=== PATIENT | female | born 1990 | race Caucasian/White ===

== ENCOUNTER 2020-10-12 14:36 | Inpatient (IN) | payer MEDICAID, OTHER ==
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
[2020-10-12] MEDS ORDERED: MAG HYDROX/AL HYDROX/SIMETH 30 ML CUP PO PRN (22:52)
[2020-10-12] MEDS ORDERED: LORazepam 1 MG TAB PO PRN (22:52)
[2020-10-12] MEDS ORDERED: MAGNESIUM HYDROXIDE 2,400 MG/10 ML CUP PO PRN (22:52)
[2020-10-12] MEDS ORDERED: ACETAMINOPHEN TAB 325 MG TAB PO PRN (22:52)
[2020-10-12] MEDS ORDERED: LORazepam 2 MG/ML INJ IM PRN (22:56)
[2020-10-12] MEDS ORDERED: HALOPERIDOL LACTATE 5 MG/ML 1 ML VIAL IM PRN (22:56)
[2020-10-12] MEDS ORDERED: haloperidoL 5 MG TAB PO PRN (22:56)
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
[2020-10-13 05:38] LABS: Urine Alcohol Positive (Negative); Urine Barbiturate Negative (Negative); Urine Cocaine Negative (Negative); Urine Methadone Negative (Negative); Urine Opiates Negative (Negative); Urine Phencyclidine Negative (Negative)
[2020-10-13 07:24] VITALS: TEMP 98.4
[2020-10-13 07:30] LABS: Basophils % (A) 0 %; Eosinophils # (A) 0.1 k/uL (0-0.7); Eosinophils % (A) 1 %; HCT 39.5 % (34.0-46.0); HGB 13.8 gm/dL (11.4-16.0); Lymphocytes # (A) 1.6 k/uL (1.0-4.8); Lymphocytes % (A) 31 %; MCH 30.4 pg (25.0-35.0); MCV 86.8 fL (80.0-100.0); Monocytes # (A) 0.3 k/uL (0-1.0); Monocytes % (A) 6 %; Neutrophils # (A) 3.1 k/uL (1.3-7.7); Neutrophils % (A) 60 %; Platelet Count 186 k/uL (150-450); RBC 4.54 m/uL (3.80-5.40); RDW 12.1 % (11.5-15.5); WBC 5.2 k/uL (3.8-10.6)
[2020-10-13 07:47] LABS: ALT 25 U/L (4-34); AST 31 U/L (14-36); African American GFR (CKD) >90 (>60 ml/min/1.73 sqM); Albumin 4.4 g/dL (3.5-5.0); Alkaline Phosphatase 62 U/L (38-126); Anion Gap 7 mmol/L; Blood Urea Nitrogen 11 mg/dL (7-17); Calcium 9.3 mg/dL (8.4-10.2); Carbon Dioxide 27 mmol/L (22-30); Chloride 105 mmol/L (98-107); Glucose 82 mg/dL (74-99); Non-African American GFR(CKD) >90 (>60 ml/min/1.73 sqM); Sodium 139 mmol/L (137-145); Total Bilirubin 1.4 mg/dL (0.2-1.3); Total Protein 6.9 g/dL (6.3-8.2)
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
[2020-10-13 16:20] LABS: Hemoglobin A1C 4.5 % (4.0-6.0)
[2020-10-13 16:40] LABS: Chol/HDL Ratio 2.65; Cholesterol 191 mg/dL (0-200); LDL Cholesterol,Calculated 106.4 mg/dL (0.0-131.0)
[2020-10-13 21:12] VITALS: RESP 18
[2020-10-13] MEDS: cloNIDine HCL 0.1 MG TAB PO SCH (21:12)
[2020-10-14] MEDS: cloNIDine HCL 0.1 MG TAB PO SCH (08:46)
[2020-10-14 08:47] VITALS: BP 118/71; PULSE 91
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
== END 2020-10-14 13:55 | disposition home or self-care (01) | DRG 897 ==
LOC: EC 14:36 → 3MHU 21:51
PROVIDERS: ADMIT Psychiatry & Neurology Psychiatry; ATTEND Psychiatry & Neurology Psychiatry
DX: F10.229 Alcohol dependence with intoxication, unspecified (principal); F33.9 Major depressive disorder, recurrent, unspecified; R45.851 Suicidal ideations; F43.10 Post-traumatic stress disorder, unspecified; F60.89 Other specific personality disorders; F60.3 Borderline personality disorder; Z91.5 Personal history of self-harm
CPT/HCPCS: 80053; 80061; 80306; 81025; 82075; 83036; 84443; 85025; 99285

== ENCOUNTER 2022-04-04 17:06 | Inpatient (IN) | payer MEDICAID, OTHER ==
[2022-04-04] MEDS ORDERED: ACETAMINOPHEN TAB 325 MG TAB PO PRN (23:34)
[2022-04-04] MEDS ORDERED: LORazepam 1 MG TAB PO PRN (23:34)
[2022-04-04] MEDS ORDERED: MAG HYDROX/AL HYDROX/SIMETH 30 ML CUP PO PRN (23:34)
[2022-04-04] MEDS ORDERED: HALOPERIDOL LACTATE 5 MG/ML 1 ML VIAL IM PRN (23:34)
[2022-04-04] MEDS ORDERED: MAGNESIUM HYDROXIDE 2,400 MG/10 ML CUP PO PRN (23:34)
[2022-04-04] MEDS ORDERED: LORazepam 2 MG/ML INJ IM PRN (23:40)
[2022-04-04] MEDS ORDERED: haloperidoL 5 MG TAB PO PRN (23:41)
--- NOTE | 2022-04-05 02:49 | ED ---
Psych HPI - General Chief Complaint: Psychiatric Symptoms Stated Complaint: mental health Time Seen by Provider: 04/04/22 20:17 Source: patient Mode of arrival: ambulatory - History of Present Illness Initial Comments: 31-year-old female presents emergency department reporting suicidal ideations. Patient has a history of depression and PTSD. States that she has been more depressed over the past couple of days and now has suicidal thoughts. No attempts. No plan. Has one reported attempts in 2009. States that she has been hospitalized multiple times for her depression, the last of which was in [place]. She denies hallucinations. No homicidal ideations. Admits to mar ijuana use. Denies alcohol or other drug use. No concern for . 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 ROS Other: All systems not noted in ROS Statement are negative. Past Medical History Past Medical History: Unable to Obtain History of Any Multi-Drug Resistant Organisms: None Reported Past Surgical History: Unable to Obtain Past Psychological History: Anxiety, Depression, PTSD Smoking Status: Never smoker, Unknown if ever smoked Past Alcohol Use History: Unable to Obtain Past Drug Use History: Marijuana - Past Family History Mother Additional Family Medical History / Comment(s): Didn't wish to discuss her family history General Exam Limitations: no limitations General appearance: alert, in no apparent distress Head exam: Present: atraumatic, normocephalic, normal inspection Eye exam: Present: normal appearance, PERRL, EOMI. Absent: scleral icterus, conjunctival injection, periorbital swelling ENT exam: Present: normal exam, mucous membranes moist Neck exam: Present: normal inspection. Absent: tenderness, meningismus, lymphadenopathy Respiratory exam: Present: normal lung sounds bilaterally. Absent: respiratory distress, wheezes, rales, rhonchi, stridor Cardiovascular Exam: Present: regular rate, normal rhythm, normal heart sounds. Absent: systolic murmur, diastolic murmur, rubs, gallop, clicks GI/Abdominal exam: Present: soft, normal bowel sounds. Absent: distended, tenderness, guarding, rebound, rigid Extremities exam: Present: normal inspection, full ROM, normal capillary refill. Absent: tenderness, pedal edema, joint swelling, calf tenderness Back exam: Present: normal inspection Neurological exam: Present: alert, oriented X3, CN II-XII intact Psychiatric exam: Present: depressed, suicidal ideation Skin exam: Present: warm, dry, intact, normal color. Absent: rash Course Vital Signs 04/04/22 04/04/22 18:43 23:59 Temperature 97.6 F 96.8 F L Pulse Rate 83 Pulse Rate [ 73 Bilateral] Respiratory 20 18 Rate Blood Pressure 122/74 Blood Pressure 122/60 [Right Arm] O2 Sat by Pulse 99 98 Oximetry Medical Decision Making - Medical Decision Making Was pt. sent in by a medical professional or institution? @ -No Did you speak to anyone other than the patient for history? @ -No Did you review nursing and triage notes? @ -Yes and I agree Were old charts reviewed? @ -Previous hospitalization Differential Diagnosis? @ -depression, anxiety, SI, HI, drug use EKG interpreted by me (3pts min.)? @ -No X-rays interpreted by me (1pt min.)? @ -No CT interpreted by me (1pt min.)? @ -No U/S interpreted by me (1pt. min.)? @ -No What testing was considered but not performed? (CT, X-rays, U/S, labs)? Why? @ None What meds were considered but not given? Why? @ -None Did you discuss the management of the patient with other professionals? @ -EPS nurse Did you reconcile home meds? @ -No Was smoking cessation discussed for >3mins.? @ -No Was critical care preformed (if so, how long)? @ -No Were there social determinants of health that impacted care today? How? (Homelessness, low income, unemployed, alcoholism, drug addiction, transportation, low edu. Level, literacy, decrease access to med. care, group home, rehab)? @ Living between several friends houses. Can not get consistent care and contributes to depression Was there de-escalation of care discussed even if they declined? (Discuss DNR or withdrawal of care, Hospice)? @ None What co-morbidities impacted this encounter? (DM, HTN, Smoking, COPD, CAD, Cancer, CVA, Hep., AIDS, mental health diagnosis, sleep apnea, morbid obesity)? @ -None Was patient admitted / discharged? Upon arrival patient was placed into room 8. A thorough history and physical exam was performed. Patient is medically cleared. She is evaluated by EPS and they do feel that the patient needs to be admitted. Covid is negative. Patient taken 4 and stable condition Undiagnosed new problem with uncertain prognosis? @ -Yes Drug Therapy requiring intensive monitoring for toxicity (Heparin, Nitro, Insulin, Cardizem)? @ No Were any procedures done? @ No Diagnosis/symptom? @ - Acute depression with suicidal ideations Acute, or Chronic, or Acute on Chronic? @ -Acute on chronic Uncomplicated (without systemic symptoms) or Complicated (systemic symptoms)? @ -Uncomplicated Side effects of treatment? @ None Exacerbation, Progression, or Severe Exacerbation] @ No Poses a threat to life or bodily function? @ Yes - Lab Data Result diagrams: 04/06/22 11:26 04/06/22 11:26 Lab Results 04/04/22 04/04/22 Range/Units 21:25 22:18 HCG, Qual Not Detected Coronavirus (PCR) Not Detected (Not Detectd) Disposition Clinical Impression: Depression Disposition: TRANSFER TO PSYCH HOSP/UNIT Condition: Stable Is patient prescribed a controlled substance at d/c from ED?: No
--- NOTE | 2022-04-05 05:24 | P.CONS ---
History of Present Illness - Reason for Consult Consult date: 04/05/22 - History of Present Illness The patient is a 31-year-old female with a PMH of psoriasis, depression and PTSD who presented to the emergency room with complaints of depression and suicidal ideation. The patient was admitted to the [facility] where she was seen and evaluated. The patient states did not wish to discuss her mental health and stated that she has spoken about it enough already today. She reports mild psoriasis for which she is not currently following with anyone. He doesn't take any medications at home. Denied any physical complaints at the time of interview. Denied experiencing chest discomfort or shortness of breath, fever, chills, cough, nausea, vomiting, abdominal pain, diarrhea. Review of systems: Pertinent positives and negatives as discussed in HPI, a complete review of systems was performed and all other systems are negative. Physical examination: General: non toxic, no distress, appears at stated age, normal weight Derm: no unusual rashes/lesions, no unusual ecchymoses, warm, dry Head: atraumatic, normocephalic, symmetric Eyes: EOMI, no lid lag, anicteric sclera ENT: Nose and ears atraumatic, no thrush, no pharyngeal erythema Neck: trachea midline, supple Mouth: no lip lesion, mucus membranes moist Cardiovascular: S1S2 reg, no murmur, no edema Lungs: CTA bilateral, no rhonchi, no rales , no accessory muscle use Abdominal: soft, nontender to palpation, no guarding Ext: no gross muscle atrophy, no contractures, Neuro: No gross focal neuro deficits noted Psych: Alert, oriented, appropriate affect Assessment/plan Psoriasis -Patient reports that it is well-controlled Depression and suicidal ideation -As per psychiatry Thank you for allowing us to participate in the care of this patient. We will follow peripherally. Do not hesitate to contact us with questions. Someone can be reached from the [facility] hospitalist group at all hours of the day at [phone]. Past Medical History Past Medical History: Unable to Obtain History of Any Multi-Drug Resistant Organisms: None Reported Past Surgical History: Unable to Obtain Past Psychological History: Anxiety, Depression, PTSD Smoking Status: Never smoker, Unknown if ever smoked Past Alcohol Use History: Unable to Obtain Past Drug Use History: Marijuana - Past Family History Mother Additional Family Medical History / Comment(s): Didn't wish to discuss her family history Medications and Allergies Home Medications Medication Instructions Recorded Confirmed Type No Known Home Medications 04/04/22 04/04/22 History Allergies Allergy/AdvReac Type Severity Reaction Status Date / Time No Known Allergies Allergy Verified 04/04/22 22:07 Physical Exam Vitals: Vital Signs Temp Pulse Pulse Resp BP BP Pulse Ox 04/04/22 23:59 96.8 F L 73 18 122/60 98 04/04/22 18:43 97.6 F 83 20 122/74 99 Intake and Output 04/04/22 04/04/22 04/05/22 14:59 22:59 06:59 Other: Weight 81.647 kg 85.6 kg
[2022-04-05] MEDS ORDERED: NICOTINE 14MG/24HR PATCH TRANSDERM SCH (09:00)
[2022-04-05] MEDS ORDERED: ESCITALOPRAM 10 MG TAB PO STA (10:24)
[2022-04-05] MEDS ORDERED: hydrOXYzine pamoate 25 MG CAP PO PRN (10:24)
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
[2022-04-05] MEDS ORDERED: traZODone HCL 50 MG TAB PO SCH (21:00)
[2022-04-05] MEDS: traZODone HCL 50 MG TAB PO SCH (21:30)
[2022-04-06] MEDS: ESCITALOPRAM 20 MG TAB PO SCH (09:07)
[2022-04-06] MEDS ORDERED: ARIPiprazole 5 MG TAB PO STA (09:36)
--- NOTE | 2022-04-06 11:21 | P.PN ---
Progress Note - Text Progress Note Date: 04/06/22 Interval History: Patient was seen wandering the hallways and was directable and agreeable to speak with story writer in the office. Patient reports that she is feeling like she is constantly judged and found to be annoying by staff. She was informed that these are splitting behaviors and thoughts. She continues to have difficulty in processing emotions and communicating appropriately. She continues to endorse suicidal ideation however denies any homicidal ideation, intention, and/or plan. She reports no auditory or visual hallucinations. She denies any paranoia or other delusions. The patient is requesting a "mood stabilizer" because she feels her extremes in mood effect her ability to cope and work with others. She has been adherent with her medications and reports no side effects. Mental Status Exam: General Appearance: Patient appears to be stated age is alert, directable, and cooperative. Behavior: Patient is seated without any agitated behavior. Histrionic. Speech: Patient's speech is fluent and nonpressured. Hyperverbal Mood/Affect: Mood is improving mildly, affect is congruent and expansive. Suicidality/Homicidality: Patient denies having any suicidal or homicidal ideation intent or plan. Perceptions: Patient denies any visual hallucinations and denies any auditory hallucinations Though content/process: Patient engages in splitting. Memory and concentration: AOX3, grossly intact for the purposes of this session Judgment and insight: Improving mildly Vital Signs Temp 97.1 F L 04/06/22 09:07 Pulse 91 04/06/22 09:07 Resp 16 04/06/22 09:07 BP 123/66 04/06/22 09:07 Pulse Ox 99 04/06/22 09:07 FiO2 Assessment Major depressive disorder, recurrent, severe, without psychotic features Borderline personality disorder Posttraumatic stress disorder Plan: -Patient continues to meet criteria for inpatient psychiatric admission for symptom stabilization and safety. Patient has signed adult voluntary form and medication consent and was placed in patient's chart. -Medications: Lexapro 20 mg by mouth daily for depression/anxiety Trazodone 150 mg by mouth at bedtime for insomnia Abilify 5 mg by mouth daily for mood augmentation/stabilization -When necessary Ativan and Haldol for agitation/aggression. -SW on board for discharge planning. Encouraged the patient to participate in milieu.
[2022-04-06 12:17] LABS: Basophils % (A) 0 %; Eosinophils # (A) 0.1 k/uL (0-0.7); Eosinophils % (A) 3 %; HCT 40.8 % (34.0-46.0); HGB 13.8 gm/dL (11.4-16.0); Lymphocytes # (A) 1.2 k/uL (1.0-4.8); Lymphocytes % (A) 27 %; MCH 29.8 pg (25.0-35.0); MCHC 33.9 g/dL (31.0-37.0); Monocytes # (A) 0.3 k/uL (0-1.0); Monocytes % (A) 7 %; Neutrophils # (A) 2.5 k/uL (1.3-7.7); Neutrophils % (A) 60 %; Platelet Count 188 k/uL (150-450); RBC 4.63 m/uL (3.80-5.40); RDW 12.2 % (11.5-15.5); WBC 4.3 k/uL (3.8-10.6)
[2022-04-06 12:31] LABS: ALT 15 U/L (4-34); AST 20 U/L (14-36); African American GFR (CKD) >90 (>60 ml/min/1.73 sqM); Albumin 4.2 g/dL (3.5-5.0); Alkaline Phosphatase 61 U/L (38-126); Anion Gap 8 mmol/L; Blood Urea Nitrogen 12 mg/dL (7-17); Calcium 9.1 mg/dL (8.4-10.2); Carbon Dioxide 26 mmol/L (22-30); Chloride 106 mmol/L (98-107); Glucose 85 mg/dL (74-99); Non-African American GFR(CKD) >90 (>60 ml/min/1.73 sqM); Potassium 4.4 mmol/L (3.5-5.1); Sodium 140 mmol/L (137-145); Total Bilirubin 0.6 mg/dL (0.2-1.3); Total Protein 6.9 g/dL (6.3-8.2)
[2022-04-06 20:44] LABS: Chol/HDL Ratio 3.15 Ratio; LDL Cholesterol,Calculated 152.4 mg/dL (0.0-131.0); VLDL Calculation 16.24 mg/dL (5.00-40.00)
[2022-04-06] MEDS: traZODone HCL 50 MG TAB PO SCH (21:31)
[2022-04-07] MEDS: ARIPiprazole 5 MG TAB PO SCH (09:19)
[2022-04-07] MEDS: ESCITALOPRAM 20 MG TAB PO SCH (09:19)
--- NOTE | 2022-04-07 10:03 | P.PN ---
Progress Note - Text Progress Note Date: 04/07/22 Interval History: Patient was seen wandering the hallways and was directable and agreeable to ean urbina with song writer in the office. Patient was also seen her earlier speaking with another patient. She is fairly calm and cooperative during the interview. She claims that she is doing "better today". She spoke about being chains on a new medication and claims that it has been helping. States that her mood and anxiety also been improving. Claims that she slept better last night. Was asking about discharge planning. He also claims that she will be going to rehab if possible. Today she denies any suicidal or homicidal ideation, intention, and/or plan. She reports no auditory or visual hallucinations. She denies any paranoia or other delusions. She has been adherent with her medications and reports no side effects. Mental Status Exam: General Appearance: Patient appears to be stated age is alert, directable, and cooperative. Behavior: Patient is seated without any agitated behavior. Histrionic, improving Speech: Patient's speech is fluent and nonpressured. Mood/Affect: Mood is improving mildly, affect is congruent Suicidality/Homicidality: Patient denies having any suicidal or homicidal ideation intent or plan. Perceptions: Patient denies any visual hallucinations and denies any auditory hallucinations Though content/process: Patient engages in splitting. more goal oriented. Memory and concentration: AOX3, grossly intact for the purposes of this session Judgment and insight: Improving mildly Assessment Major depressive disorder, recurrent, severe, without psychotic features Borderline personality disorder Posttraumatic stress disorder Plan: -Patient continues to meet criteria for inpatient psychiatric admission for symptom stabilization and safety. Patient has signed adult voluntary form and medication consent and was placed in patient's chart. -Medications: Lexapro 20 mg by mouth daily for depression/anxiety, Trazodone 150 mg by mouth at bedtime for insomnia, Abilify 5 mg by mouth daily for mood augmentation/stabilization -When necessary Ativan and Haldol for agitation/aggression. -SW on board for discharge planning. Encouraged the patient to participate in milieu. awaiting intake date
[2022-04-07] MEDS: traZODone HCL 50 MG TAB PO SCH (20:47)
[2022-04-08] MEDS: ESCITALOPRAM 20 MG TAB PO SCH (09:11)
[2022-04-08] MEDS: ARIPiprazole 5 MG TAB PO SCH (09:11)
[2022-04-08] MEDS ORDERED: ARIPiprazole 5 MG TAB PO STA (12:40)
[2022-04-08] MEDS ORDERED: ARIPiprazole 5 MG TAB PO SCH (12:45)
--- NOTE | 2022-04-08 12:53 | P.PN ---
Progress Note - Text Progress Note Date: 04/08/22 Interval History: Patient was seen and was directable, and agreeable to speak with commercial insurance underwriter in the office. She reports suicidal ideation, and thoughts of , but no specific plan while in the hospital. She is compliant with medications and denies medication side effects. She feels the Abilify helped reduce the intensity of her ruminations on and dying, but they are still present, and so we discussed increasing this dose today and she agreed. Her affect is depressed, her mood is fair. She reports feeling alienated from family and poor family support. Patient denies any auditory, visual hallucinations and denies any paranoia or delusions. Mental Status Exam: General Appearance: Patient appears to be stated age, covered in blanket around her shoulders. Behavior: Patient is calmly seated without any agitated behavior. Speech: Patient's speech is fluent and non-pressured. Mood/Affect: Mood is fair, affect is depressed and constricted. Suicidality/Homicidality: Patient endorses thoughts of suicide and , denies homicidal ideation intent or plan. Perceptions: Patient denies any visual hallucinations and denies any auditory hallucinations. Though content/process: There is no evidence of any delusional thought content and thought process is linear. Memory and concentration: AOX3, grossly intact for the purposes of this session Judgment and insight: Improving mildly Assessment: Major depressive disorder, recurrent, severe, without psychotic features Borderline personality disorder Posttraumatic stress disorder Plan: -Patient continues to meet criteria for inpatient psychiatric admission for symptom stabilization and safety. -Medications: Increase Abilify from 5 mg daily to 7.5 mg daily starting today (add additional 2.5 mg now to her morning 5 mg dose) for mood stabilization. Continue to monitor at this dose and increase to 10 mg daily if needed. Continue Lexapro 20 mg daily for depression. Continue Trazodone 150 mg QHS for sleep. -When necessary Ativan and Haldol for agitation/aggression. -SW on board for discharge planning. Encouraged the patient to participate in milieu.
[2022-04-08] MEDS: traZODone HCL 50 MG TAB PO SCH (21:05)
[2022-04-09] MEDS: ARIPiprazole 5 MG TAB PO SCH (08:35)
[2022-04-09] MEDS: ESCITALOPRAM 20 MG TAB PO SCH (08:35)
--- NOTE | 2022-04-09 19:55 | P.PN ---
Progress Note - Text Progress Note Date: 04/09/22 Interval History: Patient was seen socializing with peer in the lounge and was directable, and agreeable to speak with music writer. She reports feeling somewhat calmer today since increasing her Abilify to 7.5 mg this morning. She denies suicidal ideation or homicidal ideation, plan or intent. She denies auditory or visual hallucinations. She is compliant with medications and denies medication side effects. No paranoid ideation illicited on assessment. Mental Status Exam: General Appearance: Patient appears to be stated age, . Behavior: Patient is calmly seated without any agitated behavior. Speech: Patient's speech is fluent and non-pressured. Mood/Affect: Mood is fair, affect is depressed and constricted. Suicidality/Homicidality: Patient endorses thoughts of suicide and , denies homicidal ideation intent or plan. Perceptions: Patient denies any visual hallucinations and denies any auditory hallucinations. Though content/process: There is no evidence of any delusional thought content and thought process is linear. Memory and concentration: AOX3, grossly intact for the purposes of this session Judgment and insight: Improving mildly Assessment: Major depressive disorder, recurrent, severe, without psychotic features Borderline personality disorder Posttraumatic stress disorder Plan: -Patient continues to meet criteria for inpatient psychiatric admission for symptom stabilization and safety. -Medications: Continue Abilify 7.5 mg daily for mood stabilization. Continue Lexapro 20 mg daily for depression. Continue Trazodone 150 mg QHS for sleep. -When necessary Ativan and Haldol for agitation/aggression. -SW on board for discharge planning. Encouraged the patient to participate in milieu. Consider discharge on Monday if continues to stabilize.
[2022-04-09] MEDS: traZODone HCL 50 MG TAB PO SCH (20:58)
[2022-04-10] MEDS: ARIPiprazole 5 MG TAB PO SCH (08:49)
[2022-04-10] MEDS: ESCITALOPRAM 20 MG TAB PO SCH (08:50)
[2022-04-10] MEDS: traZODone HCL 50 MG TAB PO SCH (20:41)
--- NOTE | 2022-04-10 22:33 | P.PN ---
Progress Note - Text Progress Note Date: 04/10/22 Interval History: Patient was seen resting in her room and was directable and agreeable to speak with principal technical writer. She reports feeling improved mood today. She denies suicidal ideation or homicidal ideation, plan or intent. She denies auditory or visual hallucinations. She is compliant with medications and denies medication side effects. No paranoid ideation illicited on assessment. She is hopeful for discharge tomorrow. Mental Status Exam: General Appearance: Patient appears to be stated age, adequate hygiene. Behavior: Patient is calmly seated without any agitated behavior, good eye contact. Speech: Patient's speech is fluent and non-pressured. Mood/Affect: Mood is improving, affect is congruent and constricted. Suicidality/Homicidality: Patient denies suicidal thoughts, and denies homicidal ideation intent or plan. Perceptions: Patient denies any visual hallucinations and denies any auditory hallucinations. Though content/process: There is no evidence of any delusional thought content and thought process is linear. Memory and concentration: AOX3, grossly intact for the purposes of this session Judgment and insight: Improving mildly Assessment: Major depressive disorder, recurrent, severe, without psychotic features Borderline personality disorder Posttraumatic stress disorder Plan: -Patient continues to meet criteria for inpatient psychiatric admission for symptom stabilization and safety. -Medications: Continue Abilify 7.5 mg daily for mood stabilization. Continue Lexapro 20 mg daily for depression. Continue Trazodone 150 mg QHS for sleep. -When necessary Ativan and Haldol for agitation/aggression. -SW on board for discharge planning. Encouraged the patient to participate in milieu. Consider discharge on Monday if continues to stabilize.
[2022-04-11] MEDS: ARIPiprazole 5 MG TAB PO SCH (08:31)
[2022-04-11] MEDS: ESCITALOPRAM 20 MG TAB PO SCH (08:32)
--- NOTE | 2022-04-11 12:41 | P.PN ---
Progress Note - Text Progress Note Date: 04/11/22 Interval History: Patient was seen resting in her room and was directable and agreeable to speak with securities underwriter. She reports feeling improved mood today and is hopeful for discharge. She denies suicidal ideation or homicidal ideation, plan or intent. She denies auditory or visual hallucinations. She is compliant with medications and denies medication side effects. No paranoid ideation elicited on assessment. She has been accepted to [facility] for substance abuse treatment starting Monday and agrees to discharge on Monday directly to [facility]. Mental Status Exam: General Appearance: Patient appears to be stated age, adequate hygiene. Behavior: Patient is calmly seated without any agitated behavior, good eye contact. Speech: Patient's speech is fluent and non-pressured. Mood/Affect: Mood is improving, affect is congruent and constricted. Suicidality/Homicidality: Patient denies suicidal thoughts, and denies homicidal ideation intent or plan. Perceptions: Patient denies any visual hallucinations and denies any auditory hallucinations. Though content/process: There is no evidence of any delusional thought content and thought process is linear. Memory and concentration: AOX3, grossly intact for the purposes of this session Judgment and insight: Improving mildly Assessment: Major depressive disorder, recurrent, severe, without psychotic features Borderline personality disorder Posttraumatic stress disorder Cannabis use disorder Plan: -Patient continues to meet criteria for inpatient psychiatric admission for symptom stabilization and safety. -Medications: Continue Abilify 7.5 mg daily for mood stabilization. Continue Lexapro 20 mg daily for depression. Continue Trazodone 150 mg QHS for sleep. -When necessary Ativan and Haldol for agitation/aggression. -SW on board for discharge planning. Encouraged the patient to participate in milieu. Plan to discharge Monday to [facility] for substance abuse treatment.
[2022-04-11] MEDS: traZODone HCL 50 MG TAB PO SCH (21:09)
[2022-04-12] MEDS: ESCITALOPRAM 20 MG TAB PO SCH (08:34)
[2022-04-12] MEDS: ARIPiprazole 5 MG TAB PO SCH (08:34)
[2022-04-12] MEDS ORDERED: traZODone HCL 50 MG TAB PO PRN (09:36)
--- NOTE | 2022-04-12 11:01 | P.PN ---
Progress Note - Text Progress Note Date: 04/12/22 Interval History: Patient was seen resting in her room and was directable and agreeable to speak with service writer advisor in the office. Currently, the patient does not report any suicidal or homicidal ideation, intention, and/or plan. She is not reporting any auditory or visual hallucinations. She denies any paranoia or other delusions. Patient does express a desire to be discharged. She does understand that she will be going to [facility] tomorrow. She does inquire whether she has a diagnosis of ADHD. She has been adherent to medication endorsing any significant side effects. She reports no medical issues or concerns. Mental Status Exam: General Appearance: Patient appears to be stated age, adequate hygiene. Behavior: Patient is calmly seated without any agitated behavior, good eye contact. Speech: Patient's speech is fluent and non-pressured. Spontaneous. Mood/Affect: Mood is improving, affect is congruent and constricted. Suicidality/Homicidality: Patient denies suicidal thoughts, and denies homicidal ideation intent or plan. Perceptions: Patient denies any visual hallucinations and denies any auditory hallucinations. Though content/process: There is no evidence of any delusional thought content and thought process is linear. Memory and concentration: AOX3, grossly intact for the purposes of this session Judgment and insight: Improving mildly Vital Signs Temp 97.9 F 04/12/22 07:00 Pulse 75 04/12/22 07:00 Resp 18 04/12/22 07:00 BP 106/53 04/12/22 07:00 Pulse Ox 95 04/12/22 07:00 FiO2 Assessment: Major depressive disorder, recurrent, severe, without psychotic features Borderline personality disorder Posttraumatic stress disorder Cannabis use disorder Plan: -Patient continues to meet criteria for inpatient psychiatric admission for symptom stabilization and safety. -Medications: Continue Abilify 7.5 mg daily for mood stabilization. Continue Lexapro 20 mg daily for depression. Continue Trazodone 150 mg QHS for sleep PRN. -When necessary Ativan and Haldol for agitation/aggression. -SW on board for discharge planning. Encouraged the patient to participate in milieu. Plan to discharge Monday to [facility] for substance abuse treatment.
[2022-04-13 07:01] VITALS: BP 101/53; PULSE 77; RESP 14; TEMP 97.6
[2022-04-13] MEDS: ESCITALOPRAM 20 MG TAB PO SCH (07:59)
[2022-04-13] MEDS: ARIPiprazole 5 MG TAB PO SCH (07:59)
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
== END 2022-04-13 08:55 | disposition home or self-care (01) | DRG 885 ==
LOC: EC 17:06 → 3MHU 23:29
PROVIDERS: ADMIT Psychiatry & Neurology Psychiatry; ATTEND Psychiatry & Neurology Psychiatry
DX: F33.2 Major depressive disorder, recurrent severe without psychotic features (principal); R45.851 Suicidal ideations; F43.10 Post-traumatic stress disorder, unspecified; F60.3 Borderline personality disorder; F60.89 Other specific personality disorders; G47.00 Insomnia, unspecified; F12.10 Cannabis abuse, uncomplicated; L40.9 Psoriasis, unspecified; Z20.822 Contact with and (suspected) exposure to COVID-19; Z79.899 Other long term (current) drug therapy; Z56.0 Unemployment, unspecified; Z91.51 Personal history of suicidal behavior; Z71.51 Drug abuse counseling and surveillance of drug abuser
CPT/HCPCS: 36415; 80053; 80061; 82075; 83036; 84443; 84703; 85025; 87635; 99285